=== PATIENT | female | born 1990 | race Caucasian/White ===

== ENCOUNTER 2018-07-06 19:15 | Emergency (ER) | payer OTHER ==
[2018-07-06 20:33] VITALS: BP 124/72
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
== END 2018-07-06 21:00 | disposition home or self-care (01) ==
DX: K59.00 Constipation, unspecified (principal)